=== PATIENT | female | born 2000 | race Caucasian/White ===

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

== ENCOUNTER 2019-02-04 23:27 | Emergency (ER) | payer OTHER | END 2019-02-05 02:15 | disposition home or self-care (01) | LOC: FTE 23:27 | DX: J02.9 Acute pharyngitis, unspecified (principal); J45.909 Unspecified asthma, uncomplicated | CPT/HCPCS: 99283; Z7502 ==

== ENCOUNTER 2019-02-07 16:37 | Emergency (ER) | payer OTHER | END 2019-02-07 18:07 | disposition home or self-care (01) | LOC: FTE 16:37 | DX: J40 Bronchitis, not specified as acute or chronic (principal) | CPT/HCPCS: 99283; Z7502 ==